=== PATIENT | female | born 1965 | race Caucasian/White ===

== ENCOUNTER 2020-11-24 11:15 | Emergency (ER) | payer OTHER ==
[~2020-11-24] VITALS: Ht 172.7 cm; Wt 64.7 kg
[2020-11-24 11:25] VITALS: BP 111/72
== END 2020-11-24 11:40 | disposition home or self-care (01) ==
LOC: ED 11:20
DX: Z00.00 Encounter for general adult medical examination without abnormal findings (principal); Z11.1 Encounter for screening for respiratory tuberculosis
CPT/HCPCS: 99281